=== PATIENT | male | born 1955 | race Caucasian/White ===

== ENCOUNTER → 2018-09-29 13:19 | Outpatient (CLI) | payer OTHER, SELFPAY ==
--- NOTE | 2018-09-29 13:15 | MRI_ITS ---
STUDY: MRI LUMBAR SPINE WITH AND WITHOUT CONTRAST REASON FOR EXAM: Male, 63 years old. Severe low back pain. Left leg pain. TECHNIQUE: Standardized fat and water weighted pulse sequences were obtained in the sagittal and axial planes. 22 IV Dotarem was administered for the contrast portion of the examination. COMPARISON: None. FINDINGS: Hardware artifact. No abnormal/unexpected contrast enhancement. Heterogeneous patchy low T1 marrow signal without corresponding STIR abnormality. No acute fracture line. No dislocation. Lumbar straightening. No significant scoliosis. Conus medullaris terminates normally at the L1 level. Posterior surgical fixation extending from L2 through L4 with corresponding laminectomies. Small postoperative seroma at the surgical site adjacent L2 and L3 levels (sagittal image 5 series 2). T12-L1: Normal endplates. Normal disc height, hydration and morphology. Normal bilateral facet joints. Normal central canal and bilateral lateral recesses. Normal bilateral intervertebral neural foramina. L1-2: Minimal endplate spondylosis. Mild disc desiccation. Normal bilateral facet joints. Normal central canal and bilateral lateral recesses. Normal bilateral intervertebral neural foramina. L2-3: Minimal endplate spondylosis. Mild disc height loss with disc desiccation. Facet joint arthrosis. Normal central canal and bilateral lateral recesses. Neural from narrowing without impingement. L3-4: Minimal endplate spondylosis. Mild disc height loss with disc desiccation. Facet joint arthrosis. Normal central canal and bilateral lateral recesses. Neural foraminal narrowing without impingement. L4-5: Mild endplate spondylosis. Disc bulge/osteophyte complex, asymmetric to the right, without central canal narrowing. Facet joint arthrosis. Bilateral lateral recess narrowing without impingement. Bilateral neural femoral narrowing with impingement. L5-S1: Chronic L1 superior endplate compression/Schmorl's node without acute edema. Disc bulge without central canal narrowing. Facet joint arthrosis. Right lateral recess narrowing without impingement. Left neural femoral narrowing without impingement. Sacrum intact. Paraspinal muscle atrophy. Normal aorta. Normal retroperitoneum. MRI/Spine Lumbar W/WO Contrast IMPRESSION: No abnormal/unexpected contrast enhancement Multilevel intervertebral disc disease without central canal narrowing Multilevel lateral recess narrowing without impingement Multilevel neural foraminal narrowing with impingement of the exiting L4 nerve roots Multilevel osseous degenerative changes with lumbar straightening Multilevel uncomplicated postsurgical changes with small postoperative seroma Heterogeneous patchy T1 marrow signal statistically representing anemia/red marrow reconversion Electronically Signed: Sukhwinder Aguilar DO at 15:22 EDT Tel , Service support ,
[2018-09-29 13:55] LABS: CREATININE FINGERSTICK 1.4 mg/dL (0.70-1.30)
== END ==
PROVIDERS: Family Provider Family Medicine; PCP Family Medicine; Referring Provider Family Medicine; Visit Provider Family Medicine
DX: M54.16 Radiculopathy, lumbar region (principal)
CPT/HCPCS: 72158; A9575

== ENCOUNTER → 2019-04-25 09:59 | Outpatient (CLI) | payer OTHER, SELFPAY ==
[2018-11-28 11:26] VITALS: BMI 35.9
--- NOTE | 2019-04-25 10:00 | ECHOCS_ITS ---
Reason For Study: CAD/ASHD Procedure This was a 2D Doppler, Color Flow transthoracic echocardiogram. Contrast injection was performed. Exam performed in department. Left Ventricle Normal LV size. Concentric left ventricular hypertrophy. The estimated ejection fraction is 50 %. No evidence for diastolic dysfunction. sepatal hypokinesis. Right Ventricle Normal RV size. Normal systolic function. Atria Normal left atrium. Normal right atrium. No doppler evidence for ASD. Mitral Valve There is no mitral valve stenosis. Trivial mitral valve insufficiency. Tricuspid Valve There is no tricuspid stenosis. Trivial tricuspid valve insufficiency. Pulmonary artery systolic pressure is 25 mmHg. Aortic Valve Aortic sclerosis, no stenosis. No aortic valve insufficiency. Pulmonic Valve There is no pulmonic valvular stenosis. Trivial pulmonic valve insufficiency. Great Vessels Normal aortic root. Pericardium/Pleural No pericardial effusion. Medication Diluted definity 5ml given slow IV push to enhance endocardial definition. MMode/2D Measurements & Calculations LVIDd: 5.0 cm IVSd: 1.5 cm Ao root diam: 3.9 cm LVIDs: 3.4 cm LVPWd: 1.3 cm RVDd: 2.9 cm FS: 31.4 % LAV(MOD-bp): 43.1 ml LVAd ap4: 40.2 cm2 SV(MOD-sp4): 93.3 ml LAV(MOD-bp) Indexed: 19.0 ml/m2 EDV(MOD-sp4): 160.2 ml LAV(MOD-sp2): 50.6 ml EDV(sp4-el): 162.1 ml LAV(MOD-sp4): 37.6 ml LVAs ap4: 24.7 cm2 ESV(MOD-sp4): 67.0 ml ESV(sp4-el): 70.1 ml EF(MOD-sp4): 58.2 % EF(sp4-el): 56.7 % SV(sp4-el): 91.9 ml LA A4 area: 15.1 cm2 LA dimension(2D): 4.5 cm RA A4 area: 13.7 cm2 Doppler Measurements & Calculations MV E max rey: 55.4 cm/sec Lat Peak E' Rey: 5.0 cm/sec Med Peak E' Rey: 5.2 cm/sec MV A max rey: 87.2 cm/sec E/E' lat: 11.1 E/E' med: 10.7 MV E/A: 0.64 Ao V2 max: 118.6 cm/sec LV V1 max: 99.6 cm/sec PA V2 max: 94.9 cm/sec Ao max P.6 mmHg LV V1 max P.0 mmHg Ao V2 mean: 85.4 cm/sec Ao mean P.2 mmHg Ao V2 VTI: 24.6 cm TR max rey: 215.2 cm/sec TR max P.5 mmHg Interpretation Summary The estimated ejection fraction is 50 %. Concentric left ventricular hypertrophy. No evidence for diastolic dysfunction. sepatal hypokinesis Trivial mitral valve insufficiency. Trivial tricuspid valve insufficiency. Pulmonary artery systolic pressure is 25 mmHg. Ordering Physician: Monie Antunez Referring Physician: Monie Antunez Performed By: Candy Raza, RDJI, RVT
== END ==
PROVIDERS: Family Provider Family Medicine; PCP Family Medicine; Referring Provider Specialist; Visit Provider Specialist
DX: I21.9 Acute myocardial infarction, unspecified (principal); Z95.5 Presence of coronary angioplasty implant and graft; I10 Essential (primary) hypertension
CPT/HCPCS: 93306; Q9957; A4216; C8929

== ENCOUNTER 2021-01-28 13:08 | Day surgery (SDC) | payer OTHER, MEDICARE, SELFPAY ==
--- NOTE | 2021-01-26 10:12 | EKG12_ITS ---
Test Reason : PRE OP Blood Pressure : / mmHG Vent. Rate : 072 BPM Atrial Rate : 072 BPM P-R Int : 198 ms QRS Dur : 076 ms QT Int : 402 ms P-R-T Axes : 039 -01 040 degrees QTc Int : 440 ms Sinus rhythm with occasional Premature ventricular complexes and Premature atrial complexes Low voltage QRS Inferior infarct , age undetermined Abnormal ECG Confirmed by GRECIA BAUTISTA, CAROLYN ([id number]), department editor PEYTON BREEN ([id number]) on 01/26/2021 11:31:20 AM Referred By: BLADIMIR Confirmed By:CAROLYN PAIGE MD
[2021-01-26 13:02] LABS: Hematocrit 42.8 % (40-54); Hemoglobin 14.2 g/dL (13.0-16.5); Mean Corp Hgb Conc 33.2 g/dL (32-36); Mean Corpuscular Hgb 26.6 pg (27.0-32.0); Mean Corpuscular Volume 80.1 fL (80-94); Mean Platelet Vol. 9.7 fl (6.2-12.0); Platelet Count 387 K/mm3 (150-450); RBC Distribution Width CV 13.2 % (11.6-14.6); RBC Distribution Width SD 38.1 fl (35.1-43.9); Red Blood Count 5.34 M/mm3 (4.6-6.2); White Blood Count 13.5 K/mm3 (4.4-11.0)
[2021-01-26 13:14] LABS: International Normalized Ratio 1.1; Prothrombin Time (Protime)PT. 13.9 SECONDS (11.7-14.9)
[2021-01-26 13:15] LABS: Partial Thromboplast Time 29.4 Seconds (24.1-36.2)
[2021-01-26 13:29] LABS: AST(SGOT) 7 U/L (15-37); Alanine Aminotransfer ALT/SGPT 20 U/L (16-61); Albumin, Serum 3.2 g/dL (3.2-5.0); Alkaline Phosphatase 105 U/L (45-117); Anion Gap 8 (5-15); BUN 21 mg/dL (7-18); BUN/Creat Ratio 19.1 RATIO (10-20); Bilirubin, Direct 0.17 mg/dL (0.00-0.30); Calcium,Total 8.8 mg/dL (8.5-10.1); Chloride 98 mmol/L (98-107); EST Glomerular Filtration Rate 71 mL/min (>60); Est Glom Filt Rate - Afr Amer 86 mL/min (>60); Globulin 3.6 g/dL (2.2-4.2); Glucose 355 mg/dL (74-106); Potassium 3.2 mmol/L (3.5-5.1); Protein, Total 6.8 g/dL (6.4-8.2); Sodium Level 135 mmol/L (136-145)
[2021-01-28 13:35] VITALS: BP 189/81; PULSE 51; RESP 16; TEMP 36.3; O2SAT 95; BMI 36.5
[2021-01-28 14:15] LABS: Bedside Glucose 299 mg/dL (70-110)
[2021-01-28] MEDS: Cefazolin 2 GM in 0.9% Normal Saline 100 ML IV (14:40)
--- NOTE | 2021-01-28 14:40 | PROS_PTH ---
PATIENT: OWEN MORIN LOC: [facility] [place] U#:[id number] AGE/SX: 65/M ROOM: RE01/28/[address]: Dr. Manuel Li MD : [id number] BED: DIS: 01/28/2021 SPEC #: [id number] RECD: 01/28/21 15:45 STATUS: SHYANNE REIván #: [id number] JANIS: 01/28/21 14:[address]: Manuel Li DEPT: SURGICAL PATHOLOGY RECD BY: Ciarra Li ENTERED: 01/29/21 07:06 SP TYPE: TURP OTHR DR: Dr. Walter Suazo MD Tissues: Prostate, NOS Procedures: Surgery Specimen Level IV HEADER OPERATION: Cystoscopy, transurethral resection prostate, Olymp[facility] PRE-OP DIAGNOSIS: BPH, frequency of micturition, nocturia TISSUE SUBMITTED: Prostate tissue MICROSCOPIC DIAGNOSIS Prostate tissue, TUR: Benign prostatic hyperplasia, glandular and stromal type. SJ:alexia 01/30/2021 MICROSCOPIC DESCRIPTION Slides are reviewed. GROSS DESCRIPTION Received is one container labeled with the patient's name and designated prostate tissue. The specimen consists of multiple irregular fragments of pink-ackerman, rubbery, soft tissue that in aggregate weigh 0.9 gm and measure in aggregate 2.5 x 1.5 x 0.3 cm. The entire specimen is submitted in one cassettes. / GIL:alexia 01/29/21 TC:5 CPT: 67342
--- NOTE | 2021-01-28 14:45 | DCINST_ITS ---
Discharge Instructions Diet Discharge Diet: No restrictions Activity Discharge Activity: Return to Normal Activity and May Not Drive (while taking narcotic pain medications.) Dressing / Incision Call your doctor if you observe: Fever of 101 or Higher Catheter: Kwok to leg bag and Kwok to large bag Drain: [place] Follow Up Care Please Follow Up With: Manuel Li MD When: Call [phone] for an appointment Test Results: Test results from this visit will be discussed in further detail at your follow-up appointment, if applicable. Discharge Plan Admission Primary Reason for Your Visit: TurP Attending Provider: Manuel Li Primary Care Provider: Walter Suazo Instructions Patient Instructions: TUR Home Recovery Discharge Orders/Prescriptions Prescriptions: New ciprofloxacin HCl [Cipro] 500 mg tablet 500 mg PO BID Qty: 14 RF: 0 docusate sodium [Colace] 100 mg capsule 100 mg PO BID Qty: 20 RF: 0 oxycodone-acetaminophen 5-325 mg tablet 1 tab PO Q6H PRN (Reason: pain) 7 Days Qty: 10 RF: 0 Continued tamsulosin 0.4 mg capsule 0.4 mg PO DAILY RF: 0 ibuprofen 600 mg tablet 600 mg PO TID PRN (Reason: Pain) RF: 0 amlodipine 10 mg tablet 10 mg PO DAILY RF: 0 lisinopril 20 mg tablet 20 mg PO DAILY RF: 0 hydrochlorothiazide 25 mg tablet 25 mg PO DAILY RF: 0 tramadol 50 mg tablet 100 mg PO TID PRN (Reason: Pain) RF: 0 potassium chloride 10 mEq capsule, extended release 40 meq PO DAILY RF: 0 clotrimazole-betamethasone 1-0.05 % cream 1 applic TOPICAL PRN PRN (Reason: BREAK OUT) Qty: 45 RF: 0 prednisone 10 mg tablet 10 mg PO DAILY RF: 0 trazodone 50 mg tablet 50 mg PO QHS RF: 0 atorvastatin 10 mg Tablet 10 mg PO DAILY RF: 0 diphenhydramine-acetaminophen [Tylenol PM Extra Strength] 25-500 mg Tablet 2 tab PO QHS PRN (Reason: Sleep) RF: 0 dutasteride 0.5 mg capsule 0.5 mg PO DAILY RF: 0 Held rivaroxaban 20 mg tablet 20 mg PO DAILY RF: 0 Hold Instructions: Resume on 02/11/21. Referrals / Follow Up: Manuel Li MD [STAFF PHYSICIAN] - Walter Suazo MD [Primary Care Provider] - Disposition Disposition (needs filled in before D/C Order can be placed): Home, Self Care
--- NOTE | 2021-01-28 15:24 | PCM.OPRPT ---
Problems Associated Problem List Diagnoses (1) BPH (benign prostatic hyperplasia): Report of Operation Date of Procedure: 01/28/21 Pre-Operative Diagnosis: BPH with obstruction Post-Operative Diagnosis: Same Surgery/Procedure Performed:: Transurethral section of prostate Description of Surgical Findings:: In the preoperative setting I discussed with the patient how the surgery would be done with expect afterwards. We discussed how a prostate resection is done and we discussed the risk of the surgery including, bleeding, infection, retrograde ejaculation, changes with ejaculation or intercourse,. We discussed the possibility that the resection of the prostate may not alleviate his urinary symptoms. We discussed the small risk of developing scar tissue along the urethral channel and strictures. We also discussed the chance of the prostate could grow back and he may need further surgery or treatment in the future for prostate problems. Patient was taken back to the operating room, timeout procedure was performed, he was identified and marked and placed on the operating room table. He underwent general anesthesia. He was placed in dorsolithotomy position. Penis and testicles were prepped and draped in usual sterile fashion. Went into the bladder using the visual obturator with a resectoscope. Once inside the bladder identified the right and left ureteral orifice. I then identified the prostate and the anatomy of the prostate. I marked out the area of the sphincter and the verumontanum was identified. I then proceeded with the prostate resection first resected the median lobe. And then resected the right lobe of the prostate. Then to resect the left lobe of the prostate. I then resected the apical tissue of the prostate. Made sure that there was no injury to the sphincter or the verumontanum was still intact. At the end of the resection all the chips were Ellik out of the bladder. I then identified the left and right ureteral orifice and these were confirmed to be in good position and effluxing and not injured. The resectoscope was removed, a 22 [place] catheter was placed into the bladder. And the urine was fairly light pink color and draining normally. He was taken back to the PACU in good condition. Surgeon: Jen Type of Anesthesia: General Drains: 20 fr gardner Admit VTE Documentation VTE Present on Admission: No VTE Mechan Device Prophylaxis: SCD's VTE Pharm Prophylaxis ordered?: No
[2021-01-28 15:33] VITALS: BP 148/97; BP 189/81; PULSE 73; RESP 16; TEMP 36.4; O2SAT 93
[2021-01-28 15:45] VITALS: BP 154/94; BP 189/81; PULSE 73; RESP 16; O2SAT 93
[2021-01-28] MEDS: Lactated Ringers 1,000 ML 100 ML IV (15:53)
[2021-01-28 15:54] VITALS: BP 189/81
[2021-01-28 16:00] VITALS: BP 181/90; BP 189/81; PULSE 71; RESP 16; TEMP 36.7; O2SAT 95
[2021-01-28 16:31] LABS: Bedside Glucose 327 mg/dL (70-110)
[2021-01-28 16:45] VITALS: BP 142/81; BP 189/81; PULSE 65; RESP 16; TEMP 36.7; O2SAT 94
== END 2021-01-28 16:55 | disposition home or self-care (01) ==
LOC: SDC 13:14 → AC 13:15
PROVIDERS: Anesthesiology; PCP Family Medicine; Referring Provider Urology; Visit Provider Urology
PROC: (CPT 52601; principal; 2021-01-28 14:30)
DX: N40.1 Benign prostatic hyperplasia with lower urinary tract symptoms (principal); N13.8 Other obstructive and reflux uropathy; R35.0 Frequency of micturition; R35.1 Nocturia; R39.12 Poor urinary stream; I25.10 Atherosclerotic heart disease of native coronary artery without angina pectoris; I49.1 Atrial premature depolarization; I49.3 Ventricular premature depolarization; I10 Essential (primary) hypertension; I25.2 Old myocardial infarction; E78.00 Pure hypercholesterolemia, unspecified; M19.90 Unspecified osteoarthritis, unspecified site; R23.3 Spontaneous ecchymoses; Z95.5 Presence of coronary angioplasty implant and graft; Z79.899 Other long term (current) drug therapy; Z87.891 Personal history of nicotine dependence; Z80.0 Family history of malignant neoplasm of digestive organs
CPT/HCPCS: 52601; 36415; 80048; 80076; 82962; 85027; 85610; 85730; 88305; 93005; J2405

== ENCOUNTER 2021-05-12 12:44 | Outpatient (CLI) | payer OTHER, MEDICARE, SELFPAY ==
--- NOTE | 2021-05-12 12:38 | MRI_ITS ---
STUDY: MR Spine Lumbar W/O Contrast 05/12/2021 4:00 PM REASON FOR EXAM: Male, 66 years old. Technologist Notes prev lumbar surg, pain low back and bilat legs BACK PAIN TECHNIQUE: MR Spine Lumbar W/O Contrast Standardized fat and water weighted pulse sequences were obtained. COMPARISON: 09.29.18 FINDINGS: There is straightening of the normal lumbar lordosis. There is no substantial scoliosis. Normal conus medullaris that terminates at the L1. L1-2: Loss of intervertebral disc height. There is endplate spondylosis of the vertebral body. Normal central canal and intervertebral neuroforamina. There is bilateral facet arthropathy. There is bilateral ligamentum flavum thickening. There are pedicle screws. No significant spinal stenosis. L2-3: Loss of intervertebral disc height. There is endplate spondylosis of the vertebral body. Normal central canal and intervertebral neuroforamina. There is bilateral facet arthropathy. Laminectomy changes. There are pedicle screws. No significant spinal stenosis. L3-4: Loss of intervertebral disc height. There is endplate spondylosis of the vertebral body. Normal central canal and intervertebral neuroforamina. There is bilateral facet arthropathy. Laminectomy changes. There are pedicle screws. No significant spinal stenosis. L4-5: Loss of intervertebral disc height. There is endplate spondylosis of the vertebral body. There is narrowing of the right intervertebral neuroforamina. Compression of the right L4 nerve root. Laminectomy changes. L4 pedicle screws. There is bilateral facet arthropathy. Disc herniation. No significant spinal stenosis. L5-S1: Loss of intervertebral disc height. There is endplate spondylosis of the vertebral body. There is bilateral facet arthropathy. Normal central canal and intervertebral neuroforamina. There is bilateral ligamentum flavum thickening. Normal visualized sacral ala. Normal visualized paraspinous soft tissue structures. MRI/Spine Lumbar (Routine) IMPRESSION: Multilevel degenerative changes, as described above. There is mild straightening of the normal lumbar lordosis. This can suggest back strain. Electronically Signed: Yahir Man MD at 16:09 EST , Service support ,
== END 2021-05-12 23:59 | disposition short-term general hospital (02) ==
LOC: MRI 12:45
PROVIDERS: PCP Family Medicine; Referring Provider Anesthesiology Pain Medicine; Visit Provider Anesthesiology Pain Medicine
DX: M47.816 Spondylosis without myelopathy or radiculopathy, lumbar region (principal); M47.817 Spondylosis without myelopathy or radiculopathy, lumbosacral region; M51.26 Other intervertebral disc displacement, lumbar region; M79.606 Pain in leg, unspecified
CPT/HCPCS: 72148

== ENCOUNTER → 2021-11-26 | Outpatient (CLI) | payer OTHER, MEDICARE, SELFPAY ==
--- NOTE | 2021-11-26 16:20 | RAD_ITS ---
EXAM: XR RIGHT SHOULDER COMPLETE, 2 OR MORE VIEWS CLINICAL INDICATION: PAIN TECHNIQUE: Two or more views of the right shoulder. This report was created using [employer] report generation technology. COMPARISON: None. FINDINGS: BONES/JOINTS: Unremarkable. No acute fracture. No subluxation. Normal alignment. Preservation of the joint space. No sclerotic or destructive changes observed. SOFT TISSUES: Unremarkable. No soft tissue swelling or gas. No radiopaque foreign body. RAD/Shoulder min 2 Views IMPRESSION: Negative right shoulder x-rays. Electronically Signed: Joe Yanez MD at 3:04 EDT ,
== END | disposition home or self-care (01) ==
LOC: RAD 16:08
PROVIDERS: PCP Family Medicine; Referring Provider Anesthesiology Pain Medicine; Visit Provider Anesthesiology Pain Medicine
DX: M25.511 Pain in right shoulder (principal)
CPT/HCPCS: 73030

== ENCOUNTER 2023-11-24 21:06 | Emergency (ER) | payer MEDICARE, OTHER, SELFPAY ==
[2023-11-24 21:06] VITALS: BP 141/92; PULSE 51; RESP 18; TEMP 36.1; O2SAT 95; BMI 37.0
--- NOTE | 2023-11-24 21:16 | CT_ITS ---
EXAM: CT CHEST WITHOUT INTRAVENOUS CONTRAST CLINICAL INDICATION: rib pain L side TECHNIQUE: Helically acquired images were obtained of the chest without intravenous contrast. This CT exam was performed using one or more of the following dose reduction techniques: automated exposure control, adjustment of the mA and/or kV according to patient size, and/or use of iterative reconstruction technique. RADIATION DOSE: CTDIvol = 19.06 mGy, DLP = 780.99 mGy-cm COMPARISON: None provided, MRI lumbar spine May 12, 2021 report did not mention kidney anomalies. FINDINGS: LUNGS AND PLEURAL SPACES: Unremarkable. No mass. No consolidation or edema. No pleural effusion or thickening. No pneumothorax. HEART: Mild scattered calcifications and apparent stents in left anterior descending coronary artery, calcifications and possibly stents in right coronary artery. Postoperative changes with what appear to be at least left coronary artery bypass grafts from the ascending aorta and graft around the left internal thoracic artery. Normal heart size. No pericardial effusion. MEDIASTINUM: Unremarkable. No mediastinal or hilar adenopathy. Esophagus is unremarkable. No hiatal hernia. THYROID: Unremarkable. No thyroid lesions. BONES/JOINTS: Partially included postoperative changes of lumbar spine with partially included stabilization rods. Median sternotomy wires. No rib or other fracture identified. No suspicious lytic or blastic abnormality. Flowing ossification of most of the mid to lower thoracic spine diffuse idiopathic skeletal hyperostosis. VASCULATURE: Mild atherosclerotic calcifications of the aorta, no aneurysm or evidence of dissection calcified granuloma in the left lung base. Coarse calcified lymph node in the right infrahilar region. GALLBLADDER AND BILE DUCTS: There are at least 4 peripherally calcified stones in the proximal gallbladder, the largest 1.7 cm, the fundus of the gallbladder is 3 cm without obvious wall thickening or enhancement. There is diffusely atrophic appearing pancreas, no dilated pancreatic duct. There is an indeterminate partially included hypodense 2.5 cm focus at the lower pole of the right kidney lobe (, not fully evaluated. At least 2 tiny punctate stones in the right kidney and at least 1-to the left kidney, the lower poles of the kidneys are not fully included. CT/Chest without Contrast IMPRESSION: 1. Median sternotomy. Postoperative spine changes, not fully included. 2. No acute intrathoracic abnormality. 3. No visible posttraumatic or destructive rib lesion. Apparent superior subluxation of both humeral heads with effaced rotator cuff interval bilaterally, presumed chronic rotator cuff tears. 4. Bilateral nephrolithiasis. 5. Cholelithiasis. 6. Partially included indeterminate hypodense 2.5 cm exophytic lesion at the inferior-medial right kidney. Possibly cyst but it is not adequately evaluated. Consider additional imaging such as renal CT or MRI if it is thought to be indicated. I would be happy to compare to any prior studies provided. I have requested MRI lumbar spine August 2021 and will generate an addendum if it can be received. Electronically Signed: Kathryn Vaca MD at 23:20 EDT ,
[2023-11-24] MEDS: HYDROcodone Bitartrate/Apap 5/325 Tablet PO (21:21)
--- NOTE | 2023-11-24 21:24 | EX.ED.GENINJ ---
HPI <NELL Cedeno - Last Filed: 11/24/23 22:27> History of Present Illness Chief Complaint: Chest Other Narrative Narrative: Patient presenting today with left posterior rib pain after tripping and hitting his left side against a trailer this evening. He reports that he heard a cracking noise and is concerned that he could have a rib fracture. He reports having a hard time taking a deep breath since hitting his side. He did not hit his head and denies any other injury [facility] <NELL Cedeno - Last Filed: 11/24/23 22:27> [facility] Medical History History of steroid therapy Arthritis Kidney stones High cholesterol DVT (deep venous thrombosis) Easy bruising Injury of back Back pain History of ulceration Former smoker Sleep apnea Shortness of breath on exertion Leg cramps History of pain when walking History of edema History of echocardiogram History of stress test Hypertension Cardiology follow-up encounter History of heart attack History of deep vein thrombosis (DVT) of lower extremity Myocardial infarction History of spinal stenosis Insomnia Erectile dysfunction BPH (benign prostatic hyperplasia) Atherosclerosis of coronary artery of [place] heart without angina pectoris GOYO (obstructive sleep apnea) Hyperlipidemia Essential hypertension History of deep venous thrombosis Osteoarthritis Hx of blood clots Shortness of breath Numbness and tingling Anxiety Rash Fatigue Home Medications ?Medication ?Instructions ?Recorded ?Last Taken ?Type amlodipine 10 mg tablet 10 mg PO DAILY 11/23/18 01/28/21 07:30 History hydrochlorothiazide 25 mg tablet 25 mg PO DAILY 11/23/18 01/28/21 07:30 History ibuprofen 600 mg tablet 600 mg PO TID PRN Pain 11/23/18 Unknown History lisinopril 20 mg tablet 20 mg PO DAILY 11/23/18 01/28/21 07:30 History tamsulosin 0.4 mg capsule 0.4 mg PO DAILY 11/23/18 01/28/21 07:30 History clotrimazole-betamethasone 1 1 applic topical PRN PRN BREAK OUT 11/27/18 Unknown History %-0.05 % topical cream #45 grams potassium chloride 10 mEq 40 meq PO DAILY 11/27/18 01/28/21 07:30 History capsule,extended release tramadol 50 mg tablet 100 mg PO TID PRN Pain 11/27/18 Unknown History rivaroxaban 20 mg tablet 20 mg PO DAILY 06/04/19 Unknown History atorvastatin 10 mg tablet 10 mg PO DAILY 01/20/21 Unknown History diphenhydramine 25 2 tab PO QHS PRN Sleep 01/20/21 Unknown History mg-acetaminophen 500 mg tablet (Tylenol PM Extra Strength) dutasteride 0.5 mg capsule 0.5 mg PO DAILY 01/20/21 01/28/21 07:30 History prednisone 10 mg tablet 10 mg PO DAILY 01/20/21 01/28/21 07:30 History trazodone 50 mg tablet 50 mg PO QHS 01/20/21 Unknown History ciprofloxacin HCl 500 mg tablet 500 mg PO BID #14 tabs 01/28/21 Unknown Rx (Cipro) docusate sodium 100 mg capsule 100 mg PO BID #20 caps 01/28/21 Unknown Rx (Colace) oxycodone-acetaminophen 5 mg-325 1 tab PO Q6H PRN pain 7 days #10 01/28/21 Unknown Rx mg tablet tabs hydrocodone-acetaminophen 5-325mg 1 tab PO Q4H PRN PRN Pain 3 days 11/24/23 Unknown Rx 5mg-325mg #10 TABLETS Allergy/AdvReac Type Severity Reaction Status Date / Time nabumetone Allergy Severe mental Verified 11/24/23 21:06 status change procaine (From Novocain) Allergy Intermediate Unknown Verified 11/24/23 21:06 Family History Mother Colon cancer Hypertension CVA (cerebral vascular accident) Grandfather CVA (cerebral vascular accident) Heart disease Surgical History Hx of CABG History of cardiac catheterization History of coronary artery stent placement History of bilateral knee replacement Presence of stent in coronary artery (05/01/07) History of foot surgery History of spinal fusion Hx of local excision of skin lesion Hx of repair of left rotator cuff Social History Smoking Status: Former smoker how long ago did patient quit smokin years ago second hand exposure: No alcohol intake: never substance use type: does not use caffeine: Yes Type: carbonated beverages Number of servings: 1 and coffee Number of servings: 1 what type of physical activity do you participate in: none frequency: does not exercise seatbelt use: always ROS <NELL Cedeno - Last Filed: 11/24/23 22:27> ROS ED Constitutional Constitutional ED: Denies chills or fever(s) Cardiovascular Cardiovascular: Denies chest pain Respiratory/Chest Respiratory/Chest: Denies cough or dyspnea Gastrointestinal Gastrointestinal: Denies abdominal pain, nausea or vomiting Musculoskeletal Musculoskeletal: Reports other Details: Left-sided rib pain Integumentary Denies Abrasions Neurologic Neurologic: Denies weakness EXAM <NELL Cedeno - Last Filed: 11/24/23 22:27> Physical Exam Const Vital Signs: 11/24/23 21:06 11/24/23 23:06 Temperature 97 F L Temperature Source Temporal Pulse Rate 51 L 87 Respiratory Rate 18 18 Blood Pressure 141/92 H Blood Pressure Mean 108 Pulse Ox 95 98 Oxygen Delivery Method Room Air Room Air Positive well nourished, well developed and no apparent distress General Appearance ED: well developed HEENT Reports normocephalic and head/scalp atraumatic Mouth ED: Yes moist mucous membranes normal Eyes PERRL and EOMs intact bilaterally Neck full ROM and supple Chest Wall inspection of chest normal Chest Narrative: Pain to palpation to the left lateral and posterior rib cage, slight bruising to the left mid lateral/posterior rib cage. No crepitus. Resp normal respiratory effort and clear to auscultation bilaterally Cardio regular rate and regular rhythm GI soft to palpation, non-tender, non-distended and no masses Back/Spine normal ROM and normal to inspection Extremity normal to inspection and full ROM Neuro oriented x3, CN's II-XII intact bilaterally, moves all extremities, no focal motor deficits and no sensory deficits noted Sensorium / Orientation: awake and alert Psych mental status grossly normal and thought process normal Skin no rashes or lesions noted and no wounds <Dr. Min Parrish DO - Last Filed: 11/24/23 22:36> Physical Exam Const Vital Signs: 11/24/23 21:06 11/24/23 23:06 Temperature 97 F L Temperature Source Temporal Pulse Rate 51 L 87 Respiratory Rate 18 18 Blood Pressure 141/92 H Blood Pressure Mean 108 Pulse Ox 95 98 Oxygen Delivery Method Room Air Room Air <Dr. Jose Reeves MD - Last Filed: 11/24/23 23:46> Physical Exam Const Vital Signs: 11/24/23 21:06 11/24/23 23:06 Temperature 97 F L Temperature Source Temporal Pulse Rate 51 L 87 Respiratory Rate 18 18 Blood Pressure 141/92 H Blood Pressure Mean 108 Pulse Ox 95 98 Oxygen Delivery Method Room Air Room Air [facility] <NELL Cedeno - Last Filed: 11/24/23 22:27> [facility] Narrative Medical decision making narrative: Patient presenting today with pain to his left lateral/posterior rib cage after a mechanical fall. CT scan will be obtained to rule out rib fracture, patient given Loretto here for pain. CT scan is pending. He will be given an incentive spirometer and Loretto for home. Radiography Diagnostic Testing: Clinical Impression(s) from Imaging Studies Chest CT 11/24/23 21:16 IMPRESSION: 1. Median sternotomy. Postoperative spine changes, not fully included. 2. No acute intrathoracic abnormality. 3. No visible posttraumatic or destructive rib lesion. Apparent superior subluxation of both humeral heads with effaced rotator cuff interval bilaterally, presumed chronic rotator cuff tears. 4. Bilateral nephrolithiasis. 5. Cholelithiasis. 6. Partially included indeterminate hypodense 2.5 cm exophytic lesion at the inferior-medial right kidney. Possibly cyst but it is not adequately evaluated. Consider additional imaging such as renal CT or MRI if it is thought to be indicated. I would be happy to compare to any prior studies provided. I have requested MRI lumbar spine August 2021 and will generate an addendum if it can be received. Electronically Signed: Kathryn Vaca MD at 23:20 EDT , <Dr. Min Parrish DO - Last Filed: 11/24/23 22:36> [facility] Radiography Diagnostic Testing: Clinical Impression(s) from Imaging Studies Chest CT 11/24/23 21:16 IMPRESSION: 1. Median sternotomy. Postoperative spine changes, not fully included. 2. No acute intrathoracic abnormality. 3. No visible posttraumatic or destructive rib lesion. Apparent superior subluxation of both humeral heads with effaced rotator cuff interval bilaterally, presumed chronic rotator cuff tears. 4. Bilateral nephrolithiasis. 5. Cholelithiasis. 6. Partially included indeterminate hypodense 2.5 cm exophytic lesion at the inferior-medial right kidney. Possibly cyst but it is not adequately evaluated. Consider additional imaging such as renal CT or MRI if it is thought to be indicated. I would be happy to compare to any prior studies provided. I have requested MRI lumbar spine August 2021 and will generate an addendum if it can be received. Electronically Signed: Kathryn Vaca MD at 23:20 EDT , Treatment and Re-Evaluation Narrative: I have personally performed a face to face assessment of the patient and have reviewed the ERIC Note. I performed a substantive portion of the visit including all aspects of the following. My camp[place] findings include: History is 68-year-old male fall struck his left posterior ribs trailer. No hemoptysis. He notes pain and pain. Exam is equal breath sounds bilaterally. Tender to palpation. There is some ecchymosis. No subcutaneous air. Medical Decison Making CT scan of the chest will be obtained. Patient was given pain medication. <Dr. Jose Reeves MD - Last Filed: 11/24/23 23:46> [facility] Radiography Diagnostic Testing: Clinical Impression(s) from Imaging Studies Chest CT 11/24/23 21:16 IMPRESSION: 1. Median sternotomy. Postoperative spine changes, not fully included. 2. No acute intrathoracic abnormality. 3. No visible posttraumatic or destructive rib lesion. Apparent superior subluxation of both humeral heads with effaced rotator cuff interval bilaterally, presumed chronic rotator cuff tears. 4. Bilateral nephrolithiasis. 5. Cholelithiasis. 6. Partially included indeterminate hypodense 2.5 cm exophytic lesion at the inferior-medial right kidney. Possibly cyst but it is not adequately evaluated. Consider additional imaging such as renal CT or MRI if it is thought to be indicated. I would be happy to compare to any prior studies provided. I have requested MRI lumbar spine August 2021 and will generate an addendum if it can be received. Electronically Signed: Kathryn Vaca MD at 23:20 EDT , Treatment and Re-Evaluation Narrative: I have personally performed a face to face assessment of the patient and have reviewed the ERIC Note. I performed a substantive portion of the visit including all aspects of the following. My camp[place]de findings include: History is 68-year-old male fall struck his left posterior ribs trailer. No hemoptysis. He notes pain and pain. Exam is equal breath sounds bilaterally. Tender to palpation. There is some ecchymosis. No subcutaneous air. Medical Decison Making CT scan of the chest will be obtained. Patient was given pain medication. Lala: Patient checked out to me for CT results and final disposition. I reviewed the CT images and report which I agree with, it shows no acute injury including rib fracture, pulmonary contusion, other organ injury. There were some incidental findings, several. Bilateral nephrolithiasis, cholelithiasis, and an exophytic lesion on the right kidney that could be a cyst or mass, further imaging recommended. Discussed this with the patient, to follow-up with his doctor he states he has an appointment next week, I advised him to mention that he may need follow-up imaging of this, the radiologist had specific recommendations in her report. Prescription for analgesics was written patient comfortable with that overall plan. Discharge Plan Triage Chief Complaint: Chest Other ED Midlevel Provider: Dayna Law ED Provider: Min Parrish Dx/Rx/DC Orders Clinical Impression: Contusion of rib on left side, Fall, Cholelithiasis, Bilateral nephrolithiasis, Renal mass, right Instructions: ED Rib Contusion or Minor Fracture Prescriptions: New hydrocodone-acetaminophen 5-325 mg tablet 1 tab PO Q4H PRN PRN (Reason: Pain) 3 Days Qty: 10 0RF No Action tamsulosin 0.4 mg capsule 0.4 mg PO DAILY ibuprofen 600 mg tablet 600 mg PO TID PRN (Reason: Pain) amlodipine 10 mg tablet 10 mg PO DAILY lisinopril 20 mg tablet 20 mg PO DAILY hydrochlorothiazide 25 mg tablet 25 mg PO DAILY tramadol 50 mg tablet 100 mg PO TID PRN (Reason: Pain) potassium chloride 10 mEq capsule, extended release 40 meq PO DAILY clotrimazole-betamethasone 1-0.05 % cream 1 applic TOPICAL PRN PRN (Reason: BREAK OUT) Qty: 45 Patient Comments: APPLY cream TWICE DAILY FOR UP TO TWO WEEKS in any ONE location. AVOIDUSE ON FACE AND around eyes. rivaroxaban 20 mg tablet 20 mg PO DAILY Rx Instructions: must administer with evening meal prednisone 10 mg tablet 10 mg PO DAILY Patient Comments: TAKE ONE TABLET BY MOUTH ONCE DAILY trazodone 50 mg tablet 50 mg PO QHS atorvastatin 10 mg Tablet 10 mg PO DAILY diphenhydramine-acetaminophen [Tylenol PM Extra Strength] 25-500 mg Tablet 2 tab PO QHS PRN (Reason: Sleep) dutasteride 0.5 mg capsule 0.5 mg PO DAILY ciprofloxacin HCl [Cipro] 500 mg tablet 500 mg PO BID Qty: 14 0RF docusate sodium [Colace] 100 mg capsule 100 mg PO BID Qty: 20 0RF oxycodone-acetaminophen 5-325 mg tablet 1 tab PO Q6H PRN (Reason: pain) 7 Days Qty: 10 0RF Primary Care Provider: Walter Suazo Referrals: Walter Suazo MD [Primary Care Provider] - 5-7 Days Activity Restrictions/Additional Instructions: Follow-up with your PCP and return for any worsening of your symptoms. Print Language: Albanian Disposition Disposition: Home, Self Care
[2023-11-24 23:06] VITALS: PULSE 87; RESP 18; O2SAT 98
== END 2023-11-24 23:49 | disposition home or self-care (01) ==
PROVIDERS: Emergency Provider Emergency Medicine; PCP Family Medicine; Visit Provider Emergency Medicine
DX: S20.212A Contusion of left front wall of thorax, initial encounter (principal); W01.198A Fall on same level from slipping, tripping and stumbling with subsequent striking against other object, initial encounter; K80.20 Calculus of gallbladder without cholecystitis without obstruction; N20.0 Calculus of kidney; N28.89 Other specified disorders of kidney and ureter; I25.10 Atherosclerotic heart disease of native coronary artery without angina pectoris; I10 Essential (primary) hypertension; E78.00 Pure hypercholesterolemia, unspecified; Z95.1 Presence of aortocoronary bypass graft; Z95.5 Presence of coronary angioplasty implant and graft; Z79.899 Other long term (current) drug therapy; Z87.891 Personal history of nicotine dependence
CPT/HCPCS: 71250; 99282

== ENCOUNTER → 2023-12-13 | Outpatient (CLI) | payer MEDICARE, OTHER, SELFPAY ==
--- NOTE | 2023-12-13 08:04 | CT_ITS ---
STUDY: CT ABDOMEN WITH AND WITHOUT CONTRAST REASON FOR EXAM: Male, 68 years old. RENAL MASS, LEFT RADIATION DOSAGE (If Supplied By Facility): CTDIvol = ( 30.66 ) mGy, DLP = ( 3036.32 ) mGycm TECHNIQUE: Transaxial images were obtained pre and post I.V. administration of IV 100mL Isovue-370, and without oral contrast. Sagittal and coronal images were reconstructed. Individualized dose optimization techniques were used for this CT. COMPARISON: None. FINDINGS: Minimal linear scarring at the lung bases. Calcified left infrahilar lymph nodes. Prior CABG. There is decreased attenuation of the liver consistent with steatosis. There are multiple gallstones. There are multiple benign calcified granulomata of the spleen. There is diffuse atrophy of the pancreas. Normal bilateral adrenal glands. 2 mm nonobstructive calculus in the mid posterior pole calyx of the right kidney. Punctate calculus in the inferior pole calyx of the right kidney. 1.9 cm cyst in the inferior medial pole of the right kidney. 3 mm nonobstructive calculus in the anterior lower pole calyx of the left kidney as well as a punctate calculus in the lower pole of the left kidney. Punctate calculus in the posterior upper pole calyx of the left kidney. Questionable 1.1 cm cyst in the inferior anterior aspect of the left kidney. Correlation with ultrasound is recommended. Normal visualized stomach. Normal small intestine. Normal colon. The appendix is visualized and appears normal. There is diffuse atherosclerotic calcification of the abdominal aorta, without a demonstrated aneurysm. Normal inferior vena cava. Normal retroperitoneum. Normal abdominal wall. Prior multilevel fusion of the lumbar spine. CT/Abdomen W/WO IV Contrast IMPRESSION: Questionable cyst in the inferior anterior aspect of the left kidney. Correlation with ultrasound is recommended for further evaluation. Nonobstructive bilateral intrarenal cysts. Multiple gallstones. Fatty infiltration of the liver. Electronically Signed: Yoseph Amin MD at 13:36 EDT ,
[2023-12-13 08:32] LABS: CREATININE FINGERSTICK < 1.0 mg/dL (0.70-1.30); EGFR FINGERSTICK > 60.0000 mL/min (>60)
== END | disposition home or self-care (01) ==
LOC: CT 08:03
PROVIDERS: PCP Family Medicine; Referring Provider Family Medicine; Visit Provider Family Medicine
DX: Z01.812 Encounter for preprocedural laboratory examination (principal); N28.89 Other specified disorders of kidney and ureter
CPT/HCPCS: 74170; Q9967

== ENCOUNTER → 2024-04-11 | Outpatient (CLI) | payer MEDICARE, OTHER, SELFPAY ==
--- NOTE | 2024-04-11 09:36 | RAD_ITS ---
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 COMPARISON: No relevant prior studies available. FINDINGS: VERTEBRAE: There is a posterior fusion of L2-4. There is bony neural foraminal narrowing at L2-3 and L4-5. There is bilateral laminectomies at L3 and L4. Preserved vertebral body height. No fracture. No spondylolisthesis. Preservation of the normal lumbar lordosis. No significant facet arthropathy. DISC SPACES: There is disc space narrowing at L4-5 with anterior osteophytes. GASTROINTESTINAL TRACT: Unremarkable as visualized. Included bowel gas pattern is non-obstructive. RAD/Lumbar Spine 2 or 3 Views IMPRESSION: Postsurgical changes with fusion of L2-4 with bilateral laminectomies at L3 and L4. There are degenerative changes with disc space narrowing at L4-5. There is bony neural foraminal narrowing at L2-3 and L4-5. There are no acute osseous abnormalities. Electronically Signed: Joe Yanez MD at 23:59 EST ,
--- NOTE | 2024-04-11 09:40 | RAD_ITS ---
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 COMPARISON: No relevant prior studies available. FINDINGS: VERTEBRAE: Unremarkable. Preserved vertebral body height. No fracture. No spondylolisthesis. Preservation of the normal thoracic kyphosis. No significant facet arthropathy. DISC SPACES: There is multilevel degenerative change with disc space narrowing and osteophyte formation. There are no acute osseous abnormalities. RAD/Thoracic Spine 3 Views IMPRESSION: No acute osseous abnormalities. There is multilevel degenerative change with disc space narrowing and osteophyte formation. Electronically Signed: Joe Yanez MD at 0:00 EST ,
== END | disposition home or self-care (01) ==
LOC: RAD 09:34
PROVIDERS: PCP Family Medicine; Referring Provider Anesthesiology Pain Medicine; Visit Provider Anesthesiology Pain Medicine
DX: M96.1 Postlaminectomy syndrome, not elsewhere classified (principal)
CPT/HCPCS: 72072; 72100

== ENCOUNTER → 2025-04-03 | Outpatient (CLI) | payer MEDICARE, OTHER, SELFPAY ==
--- NOTE | 2025-04-03 11:46 | RAD_ITS ---
PROCEDURE: LUMBAR SPINE 2 OR 3 VIEWS 04/03/2025 REASON FOR EXAM: DDD TECHNIQUE: Procedure Code: RADSPLL Modality: DX Procedure: LUMBAR SPINE 2 OR 3 VIEWS COMPARISON: Lumbar spine study dated 04/11/2024 FINDINGS: Vertebrae: Radiopaque disha and screws are projected over the posterior aspect of the L2, L3 and L4 levels. There has been bilateral laminectomies at the L3 and L4 level. There is a slight decrease in height of the L5 vertebral body by a proximally 3-5%. This is a stable finding. Remaining vertebral body heights are within normal limits. There is bony encroachment of the neural foramina at the L2-L3 L4-L5 and L5-S1 levels. Discs: Degenerative disc disease is seen involving the L4-L5 level. There are marginal osteophytes seen off of the anterior inferior endplate of the L4 vertebral body and superior anterior endplate of the L5 vertebral body. Remaining disc spaces are well-maintained. Alignment: There is no spondylolisthesis. Other: Arteriosclerotic vascular disease of the aorta is noted. Sacrum is intact without evidence fracture. Degenerative changes are noted involving the lower thoracic spine. RAD/Lumbar Spine 2 or 3 Views IMPRESSION: Postsurgical changes with fusion of L2 through L4 with bilateral laminectomies at L3-L4. Degenerative disc disease involving L4-L5. Decrease in height of the L5 vertebral body by 3-5% which is stable. There is bony encroachment of the neural foramina at the L2-L3, L4-L5, and L5-S 1 levels Reading Location: [id number]
== END | disposition home or self-care (01) ==
LOC: RAD 11:34
PROVIDERS: PCP Family Medicine; Referring Provider Anesthesiology Pain Medicine; Visit Provider Anesthesiology Pain Medicine
DX: M51.369 Other intervertebral disc degeneration, lumbar region without mention of lumbar back pain or lower extremity pain (principal)
CPT/HCPCS: 72100

== ENCOUNTER 2025-04-18 15:31 | Outpatient (CLI) | payer MEDICARE, OTHER, SELFPAY ==
--- NOTE | 2025-04-18 15:45 | RAD_ITS ---
PROCEDURE: LUMBAR SPINE 2 OR 3 VIEWS 04/18/2025 REASON FOR EXAM: FALL TECHNIQUE: Procedure Code: RADSPLL Modality: DX Procedure: LUMBAR SPINE 2 OR 3 VIEWS COMPARISON: 04/03/2025. FINDINGS: Vertebrae: L2-L4 PSIF. No complication. Discs: Severe L4-5 disc height loss Alignment: Trace retrolisthesis of L2-3 Other: Severe atherosclerosis of the abdominal aorta RAD/Lumbar Spine 2 or 3 Views IMPRESSION: No acute findings. Reading Location: REPLACED BY [facility]
--- NOTE | 2025-04-18 15:45 | RAD_ITS ---
PROCEDURE: SACRUM-COCCYX MIN 2 VIEWS 04/18/2025 REASON FOR EXAM: FALL Esophagus TECHNIQUE: Procedure Code: [facility] Modality: DX Procedure: SACRUM-COCCYX MIN 2 VIEWS COMPARISON: None. FINDINGS: Bones: Degenerative changes in both hips. Fusion lower lumbar spine. Sacrum and coccyx negative. Joints: Age-appropriate degenerative changes. Other: Soft tissues negative. Vascular calcifications of the abdominal aorta. RAD/Sacrum-Coccyx min 2 Views IMPRESSION: Negative sacrum/coccyx. Reading Location: [id number]
== END 2025-04-18 23:59 | disposition home or self-care (01) ==
LOC: RAD 15:33
PROVIDERS: PCP Family Medicine; Referring Provider Anesthesiology Pain Medicine; Visit Provider Anesthesiology Pain Medicine
DX: T14.90XA Injury, unspecified, initial encounter (principal); W19.XXXA Unspecified fall, initial encounter
CPT/HCPCS: 72100; 72220